=== PATIENT | male | born 1990 | race Native Hawaiian/Other Pacific Islander ===

== ENCOUNTER 2018-12-31 08:51 | Outpatient (CLI) | payer OTHER ==
--- NOTE | 2018-12-31 14:01 | Ultrasound Report ---
Reason: ELEVATED LIVER FUNCTION Procedure Date: 12/31/2018 Accession Number: [id number] / [id number] Procedure: US - Abdomen Limited CPT Code: FULL RESULT: EXAM: ABDOMEN ULTRASOUND LIMITED, RUQ EXAM DATE: 12/31/2018 10:00 AM. CLINICAL HISTORY: Elevated liver function. COMPARISON: None. TECHNIQUE: Real-time scanning was performed with static images obtained. FINDINGS: Liver: Normal in size and echotexture. Right lobe of the liver measures at least 14.8 cm. Main portal vein flow: Hepatopetal. Gallbladder: Normal. No stones, wall thickening, or sonographic Romero's sign. Biliary System: CBD measures 4 mm. No intrahepatic or extrahepatic ductal dilatation. Other: Right kidney measures 11 cm and maximal sagittal dimension has no hydronephrosis or calculi and parenchymal flow is grossly preserved by color Doppler. IMPRESSION: Normal. No cholelithiasis or cholecystitis. RADIA
== END 2018-12-31 08:52 | disposition home or self-care (01) ==
LOC: DI 08:51
PROVIDERS: ATTEND Nurse Practitioner Family
DX: R94.5 Abnormal results of liver function studies (principal)
CPT/HCPCS: 76705

== ENCOUNTER 2020-03-15 14:38 | Outpatient (CLI) | payer OTHER ==
--- NOTE | 2020-03-15 15:31 | Ultrasound Report ---
PROCEDURE: Abdomen Limited INDICATIONS: ELEVATED LFTS TECHNIQUE: Real-time focused scanning was performed of the abdomen, with image documentation. COMPARISON: None. FINDINGS: Liver: Liver demonstrates normal size and mildly increased echotexture. No focal hepatic mass. Bladder: Gallbladder is normal. No gallstones, gallbladder wall thickening, pericholecystic fluid col lection or sonographic Romero sign. Biliary ducts: No intrahepatic biliary dilation. Common bile duct measures 3 mm. Pancreas: Visualized pancreas is normal. Right kidney: Right kidney is normal in size without hydronephrosis. Others: Visualized aorta is normal in caliber. IVC is patent. IMPRESSION: Mildly increased hepatic echotexture. This finding may be secondary to mild hepatic steatosis but oth er hepatocellular disease may have a similar ultrasound appearance. Reviewed by: Kimberley James MD on 03/15/2020 3:30 PM PDT Approved by: Kimberley James MD on 03/15/2020 3:30 PM PDT Station ID: [id number]
== END 2020-03-15 14:39 | disposition home or self-care (01) ==
LOC: DI 14:38
PROVIDERS: ATTEND Nurse Practitioner Family
DX: R93.2 Abnormal findings on diagnostic imaging of liver and biliary tract (principal)
CPT/HCPCS: 76705